=== PATIENT | female | born 1985 | race Caucasian/White ===

== ENCOUNTER 2020-10-29 21:25 | Emergency (ER) | payer BC ==
[~2020-10-29] VITALS: Ht 167.6 cm; Wt 70.8 kg
[2020-10-29 21:56] VITALS: BP_SYST 109
[2020-10-29 22:38] LABS: BILIRUBIN,URINE NEGATIVE (NEGATIVE); BLOOD, URINE NEGATIVE (NEGATIVE); CLARITY/URINE CLEAR (CLEAR); COLOR,URINE YELLOW (YELLOW); GLUCOSE,URINE NEGATIVE (NEGATIVE); KETONES,URINE NEGATIVE (NEGATIVE); LEUKOCYTE ESTERASE ,URINE NEGATIVE (NEGATIVE); NITRITE, URINE NEGATIVE (NEGATIVE); PH,URINE 6.5 (5.0-8.0); PROTEIN URINE NEGATIVE (NEGATIVE); UROBILINOGEN,URINE 0.2 (0.2-1.0)
[2020-10-30] MEDS ORDERED: CYCLOBENZAPRINE HCL 10 MG TABLET (FLEXERIL) PO ONE (00:15)
[2020-10-30] MEDS ORDERED: KETOROLAC TROMETHAMINE 60 MG/2 ML VIAL IM ONE (00:15)
[2020-10-30] MEDS ORDERED: CYCL-10 PO (01:20)
[2020-10-30] MEDS ORDERED: NAPR-1172 PO (01:20)
[2020-10-30 01:23] VITALS: BP_SYST 112
== END 2020-10-30 01:23 | disposition home or self-care (01) ==
LOC: SED 21:25
DX: M54.5 Low back pain (principal); Z79.899 Other long term (current) drug therapy
CPT/HCPCS: 81003; 81025; 96372; 99283; J1885

== ENCOUNTER → 2021-08-10 | Emergency (ER) | payer BC ==
[~2021-08-10] VITALS: Ht 167.6 cm; Wt 72.6 kg
[~2021-08-10] MED LIST: CYCL10TA24 PO; NAPR-1172 PO
--- NOTE | 2021-08-10 10:21 | NUR ---
Patient triaged and placed in waiting room. VSS and patient appears in no acute distress at this time. Accompanied by FRIEND, awaiting available bed, and MD notified of need for MSE.
[2021-08-10 10:22] VITALS: BP_SYST 109
--- NOTE | 2021-08-10 10:48 | NUR ---
COVID SWAB DONE AND SENT TO LAB
--- NOTE | 2021-08-10 13:30 | NUR ---
PT TOLD ADMITTING SHE WAS LEAVING.
--- NOTE | 2021-08-10 13:30 | NUR ---
PT IS LEFT WITHOUT BEING SEEN
== END | disposition left against medical advice (07) ==
LOC: SED 10:21
DX: R09.81 Nasal congestion (principal); Z20.822 Contact with and (suspected) exposure to COVID-19; Z53.21 Procedure and treatment not carried out due to patient leaving prior to being seen by health care provider
CPT/HCPCS: 36415